=== PATIENT | male | born 1955 | race Caucasian/White ===

== ENCOUNTER → 2018-12-27 | Outpatient (CLI) | payer OTHER ==
[~2018-12-27] VITALS: Ht 177.8 cm; Wt 119.3 kg
[~2018-12-27] MED LIST: CATHETER FLUSH 10 ML SYR IV PRN
[2018-12-27 13:25] VITALS: BP 219/64
== END ==
LOC: CARD 11:28
PROVIDERS: ATTEND Internal Medicine Cardiovascular Disease
DX: I51.7 Cardiomegaly (principal); E11.9 Type 2 diabetes mellitus without complications; I10 Essential (primary) hypertension; I73.9 Peripheral vascular disease, unspecified; D12.6 Benign neoplasm of colon, unspecified; Z86.010 Personal history of colon polyps
CPT/HCPCS: 78452; 93017; 93306

== ENCOUNTER → 2022-10-04 | Outpatient (CLI) | payer MEDICARE, OTHER | LOC: CARD 09:54 | PROVIDERS: ATTEND Physician Assistant | DX: I10 Essential (primary) hypertension (principal) | CPT/HCPCS: 93306 ==

== ENCOUNTER → 2022-12-08 | Outpatient (CLI) | payer MEDICARE, OTHER ==
[~2022-12-08] MED LIST changes: -CATHETER FLUSH 10 ML SYR IV PRN; +CATHETER FLUSH 10 ML SYR IVP PRN
[2022-12-08 09:41] VITALS: BP 203/115
--- NOTE | 2022-12-08 16:48 | Cardiology Stress Test Report ---
Stress Test Report Date of Procedure/Referring: Date of Procedure: Dec 08, 2022 PCP Ayana Witt MD Admitting Physician Admitting Physician: Attending Physician: Yolette Storm Indications: HTN Baseline Heart Rate: 91 Baseline Blood Pressure: Blood Pressure Systolic: 203 Blood Pressure Diastolic: 115 Vital Signs Date Time Temp Pulse Resp B/P (MAP) Pulse Ox O2 Delivery O2 Flow Rate FiO2 12/08/22 09:41 102 16 203/115 (144) 98 Room Air Baseline Vital Signs Vital Signs Date Time Temp Pulse Resp B/P (MAP) Pulse Ox O2 Delivery O2 Flow Rate FiO2 12/08/22 09:41 102 16 203/115 (144) 98 Room Air Baseline EKG: Baseline EKG: NSR Summary: After explaining the procedure and details to the patient, he signed the consent and was brought to the stress nuclear laboratory. Patient exercised on standard Elvis protocol, EKG, heart rate and blood pressure were monitored continuously, resting and stress doses of radio tracer were i njected, imaging was acquired and reviewed in the short axis, horizontal long axis and vertical long axis views Patient was able to exercise for a total of 5.30 minutes on Elvis protocol, METs 7.1 Maximum heart rate 140 Maximum blood pressure 259/107 Stress EKG, Minimal nondiagnostic changes Recovery EKG, Return to baseline TID: 0.81 SSS: 2 SDS: 2 EF: 60 Conclusion: Fair exercise tolerance for a total of 5 minutes and 30 seconds on standard Elvis protocol 7.1 METS achieving 90% of maximal expected heart rate Appropriate heart rate response to exercise return to baseline during recovery Baseline hypertension with severe hypertensive response to exercise with peak blood pressure 259/107 return to baseline during recovery Minimal nondiagnostic EKG changes with exercise return to baseline during recovery No ischemia or infarction noted on SPECT images Normal left ventricular size, ejection fraction 60% Copy Copies To 1: AYANA WITT MD, BASHAR J MD Dec 08, 2022 16:48
== END ==
LOC: CARD 08:01
PROVIDERS: ATTEND Physician Assistant
DX: I10 Essential (primary) hypertension (principal)
CPT/HCPCS: 78452; 93017; A9502